=== PATIENT | female | born 1970 | race Caucasian/White ===

== ENCOUNTER 2017-01-06 11:31 | Emergency (ER) | payer OTHER ==
[~2017-01-06] VITALS: Ht 172.7 cm; Wt 93.2 kg
[2017-01-06 11:51] VITALS: BP 137/91; PULSE 89; RESP 16; O2SAT 100
--- NOTE | 2017-01-06 12:01 | ED.REPORT ---
HPI-General Illness Date of Service Jan 06, 2017 ED Provider: Varun Bradshaw MD Pt is a 46 y/o female presenting to the ED due to possible needle stick injury to a right finger which occurred prior to arrival. 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 She immediately washed the location thoroughly. She is unsure if it actually was a needle stick injury but believes that is most likely. Nursing Notes Stated Complaint: EXPOSURE FROM A NEEDLE STICK Chief Complaint: Post Exposure Body Fluids Nursing Notes Reviewed: Yes Allergies: Coded Allergies: No Known Allergies (Unverified , 01/06/17) General Time Seen by MD: 11:56 Chief Complaint Other (needle stick) Hx Obtained From: Patient Arrived By: Walk-in Sudden in Onset?: Yes Onset Occurred: Just prior to arrival Symptom Duration: Since onset Severity: Current: No pain currently Severity: Maximum: No pain Similar Sx Previous: No Past Medical History Past Medical History None reported Past Surgical History denies Smoking History Former Smoker Social History Alcohol Use: "Social" Drug Use: Denies drug use Occupation 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 Physical Exam Vital Signs Vital Signs Date Time Temp Pulse Resp B/P Pulse Ox O2 Delivery O2 Flow Rate FiO2 01/06/17 13:08 36.4 89 16 137/91 100 Room Air 01/06/17 11:51 36.4 89 16 137/91 100 Room Air Initial VS: Reviewed, Vital signs normal Head / Eyes: Atraumatic, Normocephalic, PERRL ENT: Mucous membranes moist, Conjunctiva normal, No scleral icterus Neck: Full range of motion Respiratory: No respiratory distress Cardiovascular: Intact distal pulses Abdomen / GI: No distention Skin: Warm, Dry, No cyanosis Neurologic: Alert, Oriented, Nonfocal Psychiatric: Mood/affect normal, Behavior normal, Normal thought content General/Constitutional: Awake, Alert, No acute distress, Well appearing, Cooperative, Not toxic appearing Wrist / Hand: Full range of motion, No swelling, No erythema, Non-tender, No snuffbox tenderness, No deformity, Neurologic intact, Vascular intact, No ligamentous injury, Tendon function NL, No compartment syndrome, No circumferential injury, No clubbing/cyanosis, No edema Small puncture wound right finger Interpretation & Diagnostics Lab Results Interpretation Test 01/06/17 12:09 01/06/17 12:38 Re-Eval/Medical Decision Med Decision/Clinical Course 46-year-old female presenting status post needle stick. 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 She believes she struck her right hand with a needle. She reports she threw the needle away afterwards. It was in the hospital with source patient drawn with exposure panel by hospitalist. We have drawn her for needlestick exposure. She is advised to call [employer] her employer immediately. She is advised to either follow up with them immediately if that is the request versus follow-up with our employee health depending on their request. She is UTD vaccinations. Time of Eval: 12:08 Re-Evaluation/Progress Note: Pt rechecked. Informed pt of plan for treatment. Pt understands and agrees with plan for treatment. F/U and RTER warnings given. All questions addressed. Counseled Regarding: Diagnosis, Need for follow-up, When/why to return to ED Discharge & Departure Primary Impression: Needle stick injury Additional Impression: Exposure Encounter type: initial encounter Qualified Code: T75.89XA - Other specified effects of external causes, initial encounter Disposition: Home Discharge Condition All VS Reviewed: Yes Condition: Stable Patient Instructions: Needle Stick Injuries (ED) Additional Instructions: We were able to draw the source patient and you today. I recommend you call employee health immediately. You should also call [employer] and notify them of the exposure SACHI. Return to the emergency department for signs of infection: redness, swelling, pain, discharge. Referrals: [facility] Scribe Attestation Portions of this note were transcribed by Joe Moran. I, Dr. Bradshaw personally performed the history, physical exam and medical decision-making; I reviewed and confirmed the accuracy of the information in the transcribed note. Signed by Dayday Carrasquillo, 01/06/17 - 1215 Varun Bradshaw MD Jan 06, 2017 12:01 JOE MORAN Jan 06, 2017 12:09
[2017-01-06 13:08] VITALS: BP 137/91; PULSE 89; RESP 16; O2SAT 100
== END 2017-01-06 13:09 | disposition home or self-care (01) ==
LOC: SED 11:31
DX: S61.239A Puncture wound without foreign body of unspecified finger without damage to nail, initial encounter (principal); W46.1XXA Contact with contaminated hypodermic needle, initial encounter; Y92.230 Patient room in hospital as the place of occurrence of the external cause; Y93.89 Activity, other specified; Y99.0 Civilian activity done for income or pay; Z87.891 Personal history of nicotine dependence; Z77.21 Contact with and (suspected) exposure to potentially hazardous body fluids
CPT/HCPCS: 36415; 86706; 87340; 99283; G0433; G0472

== ENCOUNTER 2017-03-16 11:34 | Emergency (ER) | payer OTHER ==
[~2017-03-16] VITALS: Ht 175.3 cm; Wt 92.7 kg
[2017-03-16 11:39] VITALS: BP 132/77; PULSE 112; RESP 16; O2SAT 100
--- NOTE | 2017-03-16 11:45 | ED.REPORT ---
HPI-Extremity Problem Upper Date of Service March 16, 2017 ED Provider: History of Present Illness: drawing a patient, poked patient and he maximino back his hand and the needle flew in the air and hit her in the left hand. Happened at 0830 this am. Source is huang Escobar. [id number]. primary care is adam at [facility] in [place]. tdap likely up to date. . has had hepatitis series. started here 09/2015. after stick washed wound and then squeezed more and used more soap and water for about 2 to 3 minutes. Minimal depth, no flash back of blood in needle before he jerked hand Nursing Notes Stated Complaint: NEEDLE STICK Chief Complaint: Post Exposure Body Fluids Nursing Notes Reviewed: Yes Allergies: Coded Allergies: No Known Allergies (Unverified , 01/06/17) General Time Seen by MD: 11:44 Chief Complaint Hand Injury left Hx Obtained From: Patient Onset Occurred: 1 - 4 hours ago Symptom Duration: Since onset Past Medical History Past Medical History None reported Past Surgical History denies Smoking History Former Smoker Social History Alcohol Use: "Social" Drug Use: Denies drug use Occupation lives with partner works as a [employer] 03/16/2017 Ambulatory Status Independent Review of Systems Basic Review of Systems Eyes: Vision NL, No discharge ENT: Hearing NL, No pain, No nasal congestion, No pharyngeal pain Respiratory: No shortness of breath, No cough, No wheeze Cardiovascular: No chest pain, No dyspnea on exertion, No orthopnea, No parox noct dyspnea, No palpitations GI: No abdominal pain, No anorexia, No nausea, No vomiting : No dysuria, No frequency Hematologic: No bleeding, No bruising Endocrine: No cold intolerance, No heat intolerance, No weight gain, No weight loss Allergy / Immune: No allergy Psychiatric: Normal thought content Eyes: Denies: Blurred left, Blurred right Respiratory: Denies: Dyspnea on exertion GI: Denies: Abdominal pain Physical Exam Initial Vital Signs Vital Signs (First) Date Time Temp Pulse Resp B/P Pulse Ox O2 Delivery O2 Flow Rate FiO2 03/16/17 11:39 37.0 112 16 132/77 100 Room Air Initial VS: Reviewed, Vital signs normal General/Constitutional: Well-developed, Well-nourished Head / Eyes: Atraumatic, Normocephalic, PERRL ENT: Mucous membranes moist, Conjunctiva normal, No scleral icterus Neck: Supple, Non-tender, Full range of motion Respiratory: Breath sounds normal, Clear to auscultation, No respiratory distress Cardiovascular: Regular rate & rhythm, Heart sounds normal, Intact distal pulses Abdomen / GI: Soft, Non-tender, No guarding, No rebound, No distention Back: No CVA tenderness Lymphatic: No lymphadenopathy Lower Extremities: Vascular intact, Neuro intact, No swelling, No tenderness Skin: Warm, Dry, No cyanosis Neurologic: Alert, Oriented, Nonfocal Psychiatric: Mood/affect normal, Behavior normal, Normal thought content General/Constitutional: Awake, Alert, No acute distress, Well appearing, Well developed, Well hydrated, Well nourished, Cooperative, Not toxic appearing Respiratory / Chest: Atraumatic, Breath sounds NL, Breath sounds = bilat, No respiratory distress Cardiovascular: Heart rate NL, Regular rhythm, Heart sounds NL left palm of hand has minute puncture wound. Ecchymotic tissue surrounding wound. no active bleeding. Has full range of motion, sensation intact distally Interpretation & Diagnostics Lab Results Interpretation Test 03/16/17 12:05 Re-Eval/Medical Decision Med Decision/Clinical Course 46 year old female presents of exposure injury. Exposure risk is low risk. No sign of compartment syndrome or sign of infection. Discharge & Departure Impression: Primary Impression: Exposure Encounter type: initial encounter Qualified Code: T75.89XA - Other specified effects of external causes, initial encounter Disposition: Home Patient Instructions: Needle Stick Injuries (ED) Additional Instructions: Your blood is being tested. You have had hepatitis immunization before starting here less than 2 years ago. Also your Tdap was reviewed at that time and are likely up to date. This is a low risk exposure, you did not have any flash back of blood in your needle before the needle hit your hand. It was minimal depth. You did the right thing about washing. You will need repeat labs in 3 to 6 months. Please check with your employer to see if they have an employee health division. If not you can follow with Dr. Ramos at occupational health. I am sorry this happened. I understand the source has bactermia. At this time, no indication to start antibiotics. Watch for redness that is hot like a sunburn. The site will show bruising because of the squeezing that you did. That is normal. Return with any concerns. Referrals: Bernard Ramos MD EDSupervising Provider for [facility]: Margarita Guo MD copies to: Bernard Ramos MD, Sue ARNP March 16, 2017 11:45
== END 2017-03-16 12:21 | disposition home or self-care (01) ==
LOC: SED 11:34
DX: S61.432A Puncture wound without foreign body of left hand, initial encounter (principal); W46.1XXA Contact with contaminated hypodermic needle, initial encounter; Y93.89 Activity, other specified; Y99.0 Civilian activity done for income or pay; Y92.230 Patient room in hospital as the place of occurrence of the external cause; Z77.21 Contact with and (suspected) exposure to potentially hazardous body fluids; Z87.891 Personal history of nicotine dependence
CPT/HCPCS: 36415; 86706; 99283; G0433